=== PATIENT | male | born 1965 | race Caucasian/White ===

== ENCOUNTER → 2016-09-13 | Outpatient (CLI) | payer OTHER ==
[2016-01-27 21:19] VITALS: BP 156/93
[~2016-09-13] MED LIST: HYDR-971 PO
== END | disposition home or self-care (01) ==
LOC: LAB 16:06
PROVIDERS: ATTEND Urology
DX: Z12.5 Encounter for screening for malignant neoplasm of prostate (principal); R31.21 Asymptomatic microscopic hematuria
CPT/HCPCS: 36415; G0103

== ENCOUNTER → 2016-09-18 | Outpatient (CLI) | payer OTHER ==
[2016-01-27 21:19] VITALS: BP 156/93
[~2016-09-18] MED LIST changes: +CONTRAST GIVEN MC PRN; +IOHEXOL 300 MG/ML 100ML VIAL. IV ONE
--- NOTE | 2016-09-18 09:54 | KCIC ---
CT abdomen and pelvis with and without contrast dated 09/18/2016. No comparison available. Clinical indication: Asymptomatic microscopic hematuria. TECHNIQUE: Contiguous axial imaging of the abdomen and pelvis performed with and without the administration of 95 cc Omnipaque 300. Study was performed as dedicated CT urogram with 10 minute delayed imaging. One or more of the following individualized dose reduction techniques were utilized for this examination: 1. Automated exposure control 2. Adjustment of the mA and/or kV according to patient size 3. Use of iterative reconstruction technique. FINDINGS: Precontrast imaging shows no evidence of calcific renal or ureteral stone. No hydronephrosis. No calcific bladder stone. Postcontrast imaging shows symmetric renal parenchymal enhancement. No evidence of mass. Tiny hypodensity at the midpole right kidney likely represents a small cyst. There is symmetric filling of the bilateral renal collecting systems. No apparent ureteral mucosal lesion or stricture. There is suspected mild wall thickening of the urinary bladder on the precontrast imaging. No mucosal lesion identified postcontrast. No apparent mass. Prostate gland is mildly enlarged. Liver, spleen, pancreas, adrenal glands and gallbladder are unremarkable. Unopacified GI tract normal in caliber and contour. No focal bowel wall thickening. No inflammatory stranding in the mesentery. The appendix is normal in caliber. No ascites or lymphadenopathy. Abdominal aorta normal in caliber. Images of the pelvis show no free pelvic fluid or pelvic adenopathy. Suspect small right inguinal hernia containing only fat. Bone windows show no acute findings. Multilevel spondylosis. Limited images of lung bases are clear. IMPRESSION: 1. No evidence of renal stone, renal mass or hydronephrosis. 2. No apparent ureteral or bladder mucosal lesion. There is mild wall thickening of the urinary bladder, nonspecific. 3. Prostatomegaly. Electronically signed by: Abdi Sutton MD (09/18/2016 9:51 AM)
== END | disposition home or self-care (01) ==
LOC: KCIC CT 08:03
PROVIDERS: ATTEND Urology
DX: R31.29 Other microscopic hematuria (principal)
CPT/HCPCS: 74178; Q9967

== ENCOUNTER 2018-07-29 20:03 | Emergency (ER) | payer OTHER ==
[~2018-07-29] VITALS: Ht 180.3 cm; Wt 90.7 kg
[~2018-07-29 20:03] MED LIST changes: -CONTRAST GIVEN MC PRN; +HYDR-3164 PO; -HYDR-971 PO; -IOHEXOL 300 MG/ML 100ML VIAL. IV ONE
[2018-07-29 20:05] VITALS: BP 155/98
[2018-07-29 21:05] LABS: INFLUENZA A PATIENT POSITIVE (NEGATIVE); INFLUENZA B PATIENT NEGATIVE (NEGATIVE)
--- NOTE | 2018-07-29 21:20 | PHYS DOC ---
Past Medical History Past Medical History: No Pertinent History (BERNARD BRENNAN APRN) Past Surgical History: No Surgical History (BERNARD BRENNAN APRN) Alcohol Use: Occasionally Drug Use: Marijuana (BERNARD BRENNAN APRN) Adult General Chief Complaint Chief Complaint: FLU SYMPTOM HPI HPI 52 y/o male presents to ER via POV for c/o flu like illness x3 days. He reports he has had generalized fatigue, body aches, non prod. cough, and felt feverish. He reports he has been using OTC Mucinex and Theraflu with minimal relief in sxs. He reports he has had less of an appetite denying any N/V/D. He denies CP/palpitations, SOA, abd pain, urinary sxs, or ROB/dizziness. He denies any tylenol/ibuprofen today. He denies recent travel. (BERNARD BRENNAN APRN) Review of Systems Review of Systems Constitutional: Reports felt feverish- hasn't checked temp. Reports generalized fatigue/body aches Eyes: Denies change in visual acuity, redness, or eye pain [] HENT: Denies nasal congestion or sore throat [] Respiratory: Denies shortness of breath. Reports nonprod. cough Cardiovascular: Denies CP GI: Denies abdominal pain, nausea, vomiting, bloody stools or diarrhea [] : Denies dysuria or hematuria [] Musculoskeletal: Denies joint/neck stiffness Integument: Denies rash or skin lesions [] Neurologic: Denies headache, focal weakness or sensory changes. Denies dizziness Endocrine: Denies polyuria or polydipsia [] All other systems were reviewed and found to be within normal limits, except as documented in this note. (BERNARD BRENNAN APRN) Current Medications Current Medications Current Medications Medications (Trade) Dose Ordered Sig/Mode Start Time Stop Time Status Last Admin Dose Admin Acetaminophen (Tylenol) 1,000 mg 1X ONCE 07/29/18 21:30 07/29/18 21:30 DC 07/29/18 21:22 1,000 MG Ibuprofen (Motrin) 800 mg 1X ONCE 07/29/18 21:30 07/29/18 21:30 DC 07/29/18 21:22 800 MG (TING NARVAEZ DO) Allergies Allergies Allergies Coded Allergies Type Severity Reaction Last Updated Verified No Known Drug Allergies 01/27/16 No (TING NARVAEZ DO) Physical Exam Physical Exam Constitutional: Well developed, well nourished, no acute distress, non-toxic appearance. Fatigued appearance HENT: Normocephalic, atraumatic, bilateral ears normal, mucous membranes pink/dry, no oral exudates, nose normal. [] Eyes: Pupils equal, conjunctiva normal, no discharge. [] Neck: Normal range of motion, no tenderness, supple, no stridor. [] Cardiovascular: Heart rate regular rhythm, no murmur [] Lungs & Thorax: Bilateral breath sounds clear to auscultation- resp. equal/nonlabored Abdomen: Bowel sounds normal, soft, no tenderness Skin: Warm, dry, no erythema, no rash. [] Back: No tenderness, no CVA tenderness. [] Extremities: No tenderness, no cyanosis, no clubbing, ROM intact, no edema. [] Neurologic: Alert and oriented X 3, normal motor function, normal sensory function, no focal deficits noted. [] Psychologic: Affect normal, judgement normal, mood normal. [] (BERNARD BRENNAN APRN) Current Patient Data Vital Signs Vital Signs Date Time Temp Pulse Resp B/P (MAP) Pulse Ox O2 Delivery O2 Flow Rate FiO2 07/29/18 20:05 100.5 99 20 155/98 (117) 97 Room Air 100.5 (TING NARVAEZ DO) Lab Values Laboratory Tests Test 07/29/18 20:25 07/29/18 21:05 Influenza Type A Antigen Positive (NEGATIVE) Influenza Type B Antigen Negative (NEGATIVE) Group A Streptococcus Rapid Negative (NEGATIVE) Microbiology 07/29/18 Throat Culture - Final, Complete 07/29/18 - Final, Complete (TING NARVAEZ DO) EKG EKG [] (BERNARD BRENNAN APRN) Radiology/Procedures Radiology/Procedures [] (BERNARD BRENNAN APRN) Course & Med Decision Making Course & Med Decision Making Pertinent Labs reviewed. (See chart for details) 2100: Pt was evaluated in the ER for flulike symptoms which he has had for the past 3-4 days. Patient was positive for influenza a. Strep test was obtained which was negative. Discussed symptomatic treatment with patient as his symptoms have been outside the 48-hour window on flu treatment. Patient was given dose of ibuprofen and Tylenol while in the ER as he had a temperature of 100.5 and had not taken any of those medications today. Advised patient to increase fluid intake. Smoking cessation was discussed. Education provided on signs and symptoms to return to ER. Discharge instructions were discussed. Patient to follow-up with primary care physician if symptoms persist or with any concerns. (BERNARD BRENNAN APRN) Dragon Disclaimer Dragon Disclaimer This electronic medical record was generated, in whole or in part, using a voice recognition dictation system. (BERNARD BRENNAN APRN) Departure Departure Impression: Primary Impression: Influenza A Disposition: HOME, SELF-CARE Condition: STABLE Referrals: DAVION MELENDEZ MD (PCP) Patient Instructions: Fever, Influenza, Adult, Smoking Cessation Additional Instructions: Drink plenty of fluids. Tylenol and/or ibuprofen as needed for pain/fever as directed on container. Avoid smoking. Follow-up with your primary care physician if symptoms persist or with concerns. Attending Signature Attending Signature I have reviewed the PA/CORSET MAKER's note and plan of care. I was available for consu ltation as needed during the patient's visit in the emergency department. I agree with the clinical impression, plan, and disposition. (TING NARVAEZ DO) BERNARD BRENNAN APRN Jul 29, 2018 21:20 TING NARVAEZ DO Aug 19, 2018 05:13
[2018-07-29] MEDS ORDERED: IBUPROFEN 400 MG TABLET. PO ONE (21:30)
[2018-07-29] MEDS ORDERED: ACETAMINOPHEN 500 MG TABLET PO ONE (21:30)
== END 2018-07-29 21:24 | disposition home or self-care (01) ==
LOC: ER 20:03
DX: J10.1 Influenza due to other identified influenza virus with other respiratory manifestations (principal)
CPT/HCPCS: 87070; 87804; 87880; 99283

== ENCOUNTER 2020-08-23 15:00 | Emergency (ER) | payer OTHER ==
[~2020-08-23] VITALS: Ht 180.3 cm; Wt 84.9 kg
[2020-08-23 15:36] VITALS: BP 169/91
--- NOTE | 2020-08-23 15:50 | ED.ADGEN ---
Past Medical History Past Medical History: No Pertinent History Past Surgical History: No Surgical History Smoking Status: Current Every Day Smoker Alcohol Use: Occasionally Drug Use: Marijuana General Adult EDM: Chief Complaint: WRIST PAIN HPI: HPI: Patient is a 54 year old AA male who presents emergency department with complaints of right wrist pain after an injury that occurred last night at 2100. Patient states he was walking his dog and had the leash wrapped tightly around his wrist when the dog suddenly jolted and pulled on his arm causing cough. Patient reports that his right wrist has been swollen and he has had pain with movement since the injury. He currently rates pain a 4 out of 10 on pain scale, pain sometimes radiates up to his elbow. He denies any numbness, tingling, or decreased sensation of the affected extremity. Patient is dominantly right- handed. Review of Systems: Review of Systems: Complete ROS is negative unless otherwise noted in HPI. Allergies: Allergies: Allergies Coded Allergies Type Severity Reaction Last Updated Verified No Known Drug Allergies 01/27/16 No Physical Exam: PE: See Above Constitutional: Well developed, well nourished, no acute distress, non-toxic appearance. [] HENT: Normocephalic, atraumatic, bilateral external ears normal, nose normal. [] Eyes: PERRLA, EOMI, conjunctiva normal, no discharge. [] Neck: Normal range of motion, no stridor. [] Cardiovascular:Heart rate regular rhythm Lungs & Thorax: Respirations even and unlabored, no retractions, no respiratory distress Skin: Warm, dry, no erythema, no rash. [] Extremities: Right wrist: Diffuse tenderness to palpation without crepitus or obvious deformity, 1+ edema, sensation intact, 2+ radial pulse no cyanosis, ROM limited due to pain Neurologic: Alert and oriented X 3, no focal deficits noted. [] Psychologic: Affect normal, judgement normal, mood normal. [] Current Patient Data: Vital Signs: Vital Signs Date Time Temp Pulse Resp B/P (MAP) Pulse Ox O2 Delivery O2 Flow Rate FiO2 08/23/20 15:36 98.4 86 18 169/91 (117) 97 Room Air 98.4 EKG: EKG: [] Heart Score: C/O Chest Pain: No Risk Scores: Score 0 - 3: 2.5% MACE over next 6 weeks - Discharge Home Score 4 - 6: 20.3% MACE over next 6 weeks - Admit for Clinical Observation Score 7 - 10: 72.7% MACE over next 6 weeks - Early Invasive Strategies Radiology/Procedures: Radiology/Procedures: PROCEDURE: WRIST 3V RIGHT XR RT WRIST 3VIEWS History: Right wrist pain Comparison: None. Technique: 3 views the right wrist. Findings: There is no evidence for fracture or dislocation. Slight ulnar positive alignment. No destructive osseous lesions are seen. Joint spaces are preserved. Soft tissues are normal. Impression: 1. No acute osseous abnormality of the right wrist. [] Course & Med Decision Making: Course & Med Decision Making Pertinent Labs and Imaging studies reviewed. (See chart for details) [] Dragon Disclaimer: Dragon Disclaimer: This electronic medical record was generated, in whole or in part, using a voice recognition dictation system. Departure Departure Impression: Primary Impression: Acute pain of right wrist Disposition: HOME / SELF CARE / HOMELESS Condition: STABLE Referrals: DAVION MELENDEZ MD (PCP) HARVEY TELLO MD Patient Instructions: Wrist Pain, [id number] Additional Instructions: Fill prescription(s) and use as directed. Recommend application of ice, elevation, and rest of affected extremity. Wear the splint that was placed until follow up appointment with Dr. Tello. You may also take Tylenol as needed for pain. Return to the ER if your symptoms worsen. Scripts Naproxen (NAPROXEN) 500 Mg Tablet 1 TAB PO BID PRN for PAIN for 10 Days, #20 TAB 0 Refills Prov: NAIN BUTCHER APRN 08/23/20 Splinting Splinting : Location: R wrist Pre-Made Type: velcro (Wrist splint) Pre-Proc Neuro Vasc Exam: normal Post-Proc Neuro Vasc Exam: normal, unchanged from pre-exam [facility] [place] splint applied by myself, cap refill remains less than 2 seconds, no complications Attending Signature Attending Signature I have participated in the care of this patient and I have reviewed and agree with all pertinent clinical information above including history, exam, and recommendations. NAIN BUTCHER APRN Aug 23, 2020 15:50 OSMEL BARROW MD Aug 23, 2020 18:28
--- NOTE | 2020-08-23 16:03 | RAD ---
XR RT WRIST 3VIEWS History: Right wrist pain Comparison: None. Technique: 3 views the right wrist. Findings: There is no evidence for fracture or dislocation. Slight ulnar positive alignment. No destructive osseous lesions are seen. Joint spaces are preserved. Soft tissues are normal. Impression: 1. No acute osseous abnormality of the right wrist. Electronically signed by: Ian Martinez MD (08/23/2020 4:01 PM) [facility]
[2020-08-23] MEDS ORDERED: NAPR-514 PO (16:33)
== END 2020-08-23 16:45 | disposition home or self-care (01) ==
LOC: ER 15:00
DX: M25.531 Pain in right wrist (principal); R05 Cough; R60.0 Localized edema; F17.200 Nicotine dependence, unspecified, uncomplicated; F12.90 Cannabis use, unspecified, uncomplicated
CPT/HCPCS: 29125; 73110; 99283

== ENCOUNTER 2021-08-13 08:53 | Inpatient (IN) | payer OTHER ==
[~2021-08-13] VITALS: Ht 180.3 cm; Wt 94.7 kg
[~2021-08-13 08:53] MED LIST changes: +NAPR-514 PO
[2021-08-13] MEDS ORDERED: IBUPROFEN 200 MG TABLET. PO ONE (09:15)
[2021-08-13] MEDS ORDERED: ACETAMINOPHEN 325 MG TABLET. PO ONE (09:15)
--- NOTE | 2021-08-13 09:33 | PHYS DOC ---
Past Medical History Past Medical History: No Pertinent History Past Surgical History: No Surgical History Smoking Status: Current Every Day Smoker Alcohol Use: Heavy Additional Information: 21 DRINKS/WK Drug Use: Marijuana General Adult EDM: Chief Complaint: UPPER EXTREMITY PAIN HPI: HPI: Patient is a 55-year-old male who presents to the emergency department complaining of right wrist pain for the past 3 days. 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 Noticed some swelling. States he took 2 tabs of 325 mg Tylenol last night without noticeable relief in pain. Denies fever or chills. Denies numbness or tingling to his right hand or right upper extremity. Denies history of gouty arthritis. States he takes no prescription medications at home. Reports his last tetanus immunization was less than 5 years ago. Patient describes his pain as a shooting pain rates between a 3 to a 10. Current pain is a 3 out of 10 unless palpated. Patient denies trying nonpharmacological pain relief methods at home prior to arrival to the emergency department. Patient denies other physical complaints or physical concerns. Review of Systems: Review of Systems: 14 body systems of review of systems have been reviewed. See HPI for pertinent positives and negative responses, otherwise all other systems are negative, nonpertinent or noncontributory. Constitutional: Negative except as outlined in HPI above. Skin: Negative except as outlined in HPI above. Eyes: Negative except as outlined in HPI above. HENT: Negative except as outlined in HPI above. Respiratory: Negative except as outlined in HPI above. Cardiovascular: Negative except as outlined in HPI above. GI: Negative except as outlined in HPI above. : Negative except as outlined in HPI above. Musculoskeletal: Negative except as outlined in HPI above. Integument: Negative except as outlined in HPI above. Neurologic: Negative except as outlined in HPI above. Endocrine: Negative except as outlined in HPI above. Lymphatic: Negative except as outlined in HPI above. Psychiatric: Negative except as outlined in HPI above. Heart Score: C/O Chest Pain: No Risk Factors: Risk Factors: DM, Current or recent (<one month) smoker, HTN, HLP, family history of CAD, obesity. Risk Scores: Score 0 - 3: 2.5% MACE over next 6 weeks - Discharge Home Score 4 - 6: 20.3% MACE over next 6 weeks - Admit for Clinical Observation Score 7 - 10: 72.7% MACE over next 6 weeks - Early Invasive Strategies Current Medications: Current Medications Medications (Trade) Dose Ordered Sig/Mode Start Time Stop Time Status Last Admin Dose Admin Acetaminophen (Tylenol) 650 mg 1X ONCE 08/13/21 09:15 08/13/21 09:16 UNV Ibuprofen (Motrin) 600 mg 1X ONCE 08/13/21 09:15 08/13/21 09:16 UNV Allergies: Allergies: Allergies Coded Allergies Type Severity Reaction Last Updated Verified No Known Drug Allergies 01/27/16 No Physical Exam: PE: Constitutional: Well developed, well nourished, no acute distress, non-toxic appearance. 55-year-old male in no apparent distress. HENT: Normocephalic, atraumatic. Eyes: Conjunctiva normal, no discharge. Neck: Normal range of motion, no stridor. Cardiovascular: No cyanosis appreciated, distal cap refill less than 2 seconds. Lungs & Thorax: Patient is in no respiratory distress, no audible adventitious lung sounds appreciated. Abdomen: Nontender, no abnormalities noted. Skin: Warm, dry, no erythema, no rash. Back: No tenderness, no deformities. Extremities: No tenderness, no cyanosis, no clubbing, ROM intact, no edema. Except for right wrist, there is soft tissue swelling to the dorsum aspect of distal wrist and proximal hand over metacarpals 3 and 4, no lymphangitis appr eciated, patient unable to perform Phalen's test related to pain with flexion of wrist Neurologic: Alert and oriented X 3, normal motor function, normal sensory function, no focal deficits noted. Psychologic: Affect normal, judgement normal, mood normal. Current Patient Data: Vital Signs: Vital Signs Date Time Temp Pulse Resp B/P (MAP) Pulse Ox O2 Delivery O2 Flow Rate FiO2 08/13/21 09:01 98.2 102 16 140/72 (94) 96 Room Air 98.2 EKG: EKG: [] Radiology/Procedures: Radiology/Procedures: REASON: wrist pain dorsum wrist and hand PROCEDURE: WRIST 3V RIGHT Exam performed: X-ray right hand and wrist. HISTORY: Pain the wrist and hand. DATE OF SERVICE: 08/13/2021. COMPARISON: None available FINDINGS: AP lateral and oblique views of the right and and wrist is obtained. Normal alignment of the hand and wrist is maintained. There is no acute fracture or dislocation. No bony erosions or periosteal reaction seen. There is mild soft tissue swelling. No foreign body. IMPRESSION: No acute bony abnormality seen in the right wrist and hand. Mild soft tissue swelling is noted. Electronically signed by: Keila Pruitt MD (08/13/2021 9:31 AM) [facility] STATUS: REG ER ORD. PHYSICIAN: TING TRUONG APRN REASON: US dorsum RT wrist; swelling- cyst vs infectious process PROCEDURE: EXT NON VASC RIGHT EXAMINATION: Right posterior wrist ultrasound INDICATION: Patient presents with right wrist swelling cysts versus infectious process COMPARISON: None FINDINGS: Ultrasound in the posterior wrist corresponding to the lump reveals predominantly anechoic fluid with some heterogenous debris surrounding the flexor tendon sheath measuring 4.0 x 3.0 x 1.2 cm. There is not a significant amount of associated vascularity. IMPRESSION: Findings may represent a ganglion cyst or complex tenosynovitis. Superimposed infection is not entirely excluded but felt to be less likely. Additional evaluation with nonemergent MRI or fluid sampling may be considered. Electronically signed by: Lane Curtis DO (08/13/2021 11:44 AM) [id number] Course & Med Decision Making: Course & Med Decision Making Pertinent Labs and Imaging studies reviewed. (See chart for details) 55-year-old male, vital signs reviewed, presents to the emergency department concerning right wrist and hand pain for the past 3 days. Physical examination concerning for ganglion cyst versus abscess versus other infectious process of the wrist and hand the right. Will order ibuprofen and acetaminophen p.o., right wrist and hand x-rays, CBC, CMP, sed rate, CRP level, uric acid level. X-rays unremarkable other than showing soft tissue swelling, will order sonogram of right wrist/hand to further evaluate concerning swelling area. Sonogram findings concerning for ganglion cyst versus a complex tenosynovitis, called and discussed patient case and ED work-up with [facility] principal solution specialist Dr. Al who agreed patient case warrants admission to the hospital, recommend ed patient be started on 25 mg indomethacin 3 times daily, give a Toradol injection IV, admit to inpatient medicine, will evaluate for further intervention. Called and discussed patient case and ED work-up with patient's primary care Dr. Blackmon who agrees patient's case warrants admission to the hospital, Dr. Blackmon did request a.m. labs of CBC, CMP, sed rate. Will order a.m. labs on bridge orders. Dragon Disclaimer: Dragon Disclaimer: This electronic medical record was generated, in whole or in part, using a voice recognition dictation system. Departure Departure Impression: Primary Impression: Tenosynovitis of right wrist Additional Impressions: Right wrist pain Right hand pain Disposition: ADMITTED INPATIENT Admitting Physician: Davion Blackmon (Admit to MedSurg unit, consult orthopedics) Condition: GUARDED Referrals: DAVION BLACKMON MD (PCP) TING TRUONG APRN Aug 13, 2021 09:33
[2021-08-13 09:40] LABS: BASO # 0.1 x10^3/uL (0.0-0.2); BASO % 1 % (0-3); EOS # 0.3 x10^3/uL (0.0-0.7); EOS % 5 % (0-3); HEMATOCRIT 47.7 % (39.0-53.0); HEMOGLOBIN 15.7 g/dL (13.0-17.5); LYMPH % 31 % (24-48); MEAN CORPUSCULAR HEMOGLOBIN 30 pg (25-35); MEAN CORPUSCULAR HGB CONC 33 g/dL (31-37); MEAN CORPUSCULAR VOLUME 90 fL (79-100); MONO # 0.5 x10^3/uL (0.0-1.1); MONO % 8 % (0-9); NEUT # 3.4 x10^3/uL (1.8-7.7); NEUT % 55 % (31-73); PLATELET COUNT 215 x10^3/uL (140-400); RED BLOOD COUNT 5.32 x10^6/uL (4.30-5.70); RED CELL DISTRIBUTION WIDTH 13.5 % (11.5-14.5); WHITE BLOOD COUNT 6.3 x10^3/uL (4.0-11.0)
[2021-08-13 09:54] LABS: CALCIUM 9.4 mg/dL (8.5-10.1); CREATININE 1.1 mg/dL (0.7-1.3); GFR 69.8; POTASSIUM 3.8 mmol/L (3.5-5.1)
[2021-08-13 09:59] LABS: ALBUMIN 3.8 g/dL (3.4-5.0); ALBUMIN/GLOBULIN RATIO 0.9 (1.0-1.7); C-REACTIVE PROTEIN 15.3 mg/L (0-3.3); TOTAL BILIRUBIN 0.5 mg/dL (0.2-1.0); TOTAL PROTEIN 7.9 g/dL (6.4-8.2); URIC ACID 8.2 mg/dL (3.5-7.2)
--- NOTE | 2021-08-13 11:46 | RAD ---
EXAMINATION: Right posterior wrist ultrasound INDICATION: Patient presents with right wrist swelling cysts versus infectious process COMPARISON: None FINDINGS: Ultrasound in the posterior wrist corresponding to the lump reveals predominantly anechoic fluid with some heterogenous debris surrounding the flexor tendon sheath measuring 4.0 x 3.0 x 1.2 cm . There is not a significant amount of associated vascularity. IMPRESSION: Findings may represent a ganglion cyst or complex tenosynovitis. Superimposed infection i s not entirely excluded but felt to be less likely. Additional evaluation with nonemergent MRI or flu id sampling may be considered. Electronically signed by: Lane Curtis DO (08/13/2021 11:44 AM) [id number]
[2021-08-13] MEDS ORDERED: KETOROLAC 15 MG/ML VIAL. IVP ONE (13:30)
[2021-08-13 15:30] VITALS: BP 146/94
[2021-08-13] MEDS: INDOMETHACIN 25 MG CAPSULE. PO SCH (17:37)
[2021-08-13 19:00] VITALS: BP 166/94
[2021-08-13 20:01] VITALS: BP 166/94
[2021-08-13 20:02] VITALS: BP 166/94
[2021-08-13 23:25] VITALS: BP 148/90
[2021-08-14 03:36] VITALS: BP 151/94
[2021-08-14] MEDS ORDERED: HYDROcodone/APAP 7.5/325MG 1 TAB TABLET PO PRN (04:30)
[2021-08-14] MEDS ORDERED: ACETAMINOPHEN 325 MG TABLET. PO PRN (04:30)
[2021-08-14] MEDS ORDERED: KETOROLAC 15 MG/ML VIAL. IVP PRN (04:30)
[2021-08-14 07:00] VITALS: BP 137/75
[2021-08-14] MEDS: INDOMETHACIN 25 MG CAPSULE. PO SCH (08:36)
--- NOTE | 2021-08-14 08:44 | PDOC ---
Provider Note Date of Service: DATE: 08/14/21 TIME: 08:44 Provider Note Combined H&P and discharge dictated. [id number] Justifications for Admission Other Justification DAVION MELENDEZ MD Aug 14, 2021 08:44
[2021-08-14] MEDS ORDERED: NAPR220C4 PO (08:49)
--- NOTE | 2021-08-14 08:51 | DISCH ---
DISCHARGE INSTRUCTIONS Condition on Discharge Condition on Discharge: Stable Activity After Discharge Activity Instructions for Disc: Activity as tolerated Diet after Discharge Diet after Discharge: Regular Contacting the DRMaite after DC Call your doctor for: Concerns you may have Follow-Up Follow up with: Dr.Pratip Blackmon in 5 -7 days Follow Up With: DAVION Carr MD Aug 14, 2021 08:51
--- NOTE | 2021-08-14 10:16 | NUR ---
Patient was seen by this morning and a discharge order was entered for after he was seen by . Patient stated he was not going to wait on any other doctors and demanded IV be removed and stated he was going home now. IV removed, patient escorted out along with and child by this nurse. Educated on follow up instructions with Dr. Cochran and Dr. Blackmon.
--- NOTE | 2021-08-14 10:23 | PDOC2 ---
YULISSA KRAMER 08/14/21 1023: CONSULT Date of Consult Date of Consult DATE: 08/14/21 TIME: 09:57 Reason for Consult Reason for Consult: Right wrist swelling Identification/Chief Complaint Chief Complaint Right dorsal hand swelling History of Present Illness Reason for Visit: Jameel Schneider is a very pleasant 55-year-old -Citizen Of [place] male patient who was admitted to [facility] on 08/13/2021 secondary to acute complaints of right wrist swelling and concerns for possible septic joint. Upon admission to the hospitalist service orthopedics was consulted for evaluation and recommendations. Patient was seen and examined at bedside this morning. He is found to be awake and alert sitting upright in bed watching TV. Family at bedside. Patient complains of pain and discomfort to the dorsal aspect of the right hand. Patient states his pain and swelling began approximately 4 days ago. Denies any inciting injury and/or trauma to the right upper extremity. Pain is reported to be over the dorsal aspect of the right hand. He does report some radiation proximally up into the right forearm. Currently rating his pain 4/10. Made worse with range of motion of the right wrist and hand. Improvement with nonsteroidal anti-inflammatories prescribed on admission. Patient states he did take aspirin at home prior to arrival with no improvement. Patient reports being right-hand dominant. Patient installs wood floors for living. He does report previous history of a right wrist fracture which was treated nonoperatively. Does not recall the date of this injury. Patient lives locally. Denies history of gout or arthritis. Denies IV drug use. Does report smoking marijuana frequently. Occasional alcohol consumption. No reported subjective fever or chills prior to admission. No additional complaints are reported at this time. Past Medical History Past Medical History Denies Past Surgical History Past Surgical History Denies Family History Family History Noncontributory Social History 1 pack per day ALCOHOL: heavy Drugs: Marijuana Lives: with Family Current Problem List Problem List Problems Medical Problems: (1) Right hand pain Status: Acute (2) Dorsal ganglion cyst right hand Status: Acute Current Medications Current Medications Current Medications Ibuprofen (Motrin) 600 mg 1X ONCE PO Last administered on 08/13/21at 10:01; Start 08/13/21 at 09:15; Stop 08/13/21 at 09:56; Status DC Acetaminophen (Tylenol) 650 mg 1X ONCE PO Last administered on 08/13/21at 10:01; Start 08/13/21 at 09:15; Stop 08/13/21 at 09:56; Status DC Indomethacin (Indocin) 25 mg TIDWMEALS PO Last administered on 08/14/21at 08:36; Start 08/13/21 at 17:00 Ketorolac Tromethamine (Toradol 15mg Vial) 15 mg 1X ONCE IVP Last administered on 08/13/21at 13:49; Start 08/13/21 at 13:30; Stop 08/13/21 at 13:40; Status DC Ketorolac Tromethamine (Toradol 15mg Vial) 15 mg PRN Q12HRS PRN IVP INFLAMMATION; Start 08/14/21 at 04:30; Stop 08/19/21 at 04:29; Status UNV Acetaminophen/ Hydrocodone Bitart (Lortab 7.5/325) 1 tab PRN Q6HRS PRN PO PAIN MODERATE/SEVERE; Start 08/14/21 at 04:30 Acetaminophen (Tylenol) 650 mg PRN Q6HRS PRN PO MILD PAIN / TEMP > 100.3'F Last administered on 08/14/21at 04:32; Start 08/14/21 at 04:30 Active Scripts Active Aleve (Naproxen Sodium) 220 Mg Capsule 440 Mg PO BID 10 Days Allergies Allergies: Coded Allergies: No Known Drug Allergies (Unverified , 01/27/16) ROS Review of System Complete 10 point review of systems was performed and found to be negative with exception of those listed in HPI above. Physical Exam Physical Exam Focused orthopedic examination right upper extremity: Skin is warm dry and intact. No visible lacerations or abrasions are noted. No erythema. No induration. No visible streaking. No wounds. Swelling noted over the dorsal aspect of the right hand. Soft fluctuant mobile mass noted dorsum right hand. Positive transillumination. Radial pulse 2+ to palpation. Cap refill brisk. Right hand is warm and well-perfused. No fusiform swelling noted to the digits of the right hand. Digits of the right hand are not held in slight flexion. No tenderness to palpation along the flexor tendon sheaths. No pain with passive extension of all digits. No pain with short arc range of motion to include flexion, extension, ulnar deviation, radial deviation of the right wrist. Compartments are soft and compressible. No pain with passive stretch. General: Alert, Oriented X3, Cooperative, No acute distress HEENT: PERRLA, EOMI Lungs: Normal air movement Heart: Regular rate Abdomen: Soft, No tenderness Extremities: No cyanosis, No edema, Normal pulses Skin: No rashes, No breakdown Neuro: Normal speech, Sensation intact Psych/Mental Status: Mental status NL Vitals VITALS Vital Signs Date Time Temp Pulse Resp B/P (MAP) Pulse Ox O2 Delivery O2 Flow Rate FiO2 08/14/21 07:00 98.2 72 18 137/75 (95) 97 Room Air 98.2 Labs Labs Laboratory Tests Test 08/13/21 09:30 White Blood Count 6.3 x10^3/uL (4.0-11.0) Red Blood Count 5.32 x10^6/uL (4.30-5.70) Hemoglobin 15.7 g/dL (13.0-17.5) Hematocrit 47.7 % (39.0-53.0) Mean Corpuscular Volume 90 fL (79-100) Mean Corpuscular Hemoglobin 30 pg (25-35) Mean Corpuscular Hemoglobin Concent 33 g/dL (31-37) Red Cell Distribution Width 13.5 % (11.5-14.5) Platelet Count 215 x10^3/uL (140-400) Neutrophils (%) (Auto) 55 % (31-73) Lymphocytes (%) (Auto) 31 % (24-48) Monocytes (%) (Auto) 8 % (0-9) Eosinophils (%) (Auto) 5 % (0-3) Basophils (%) (Auto) 1 % (0-3) Neutrophils # (Auto) 3.4 x10^3/uL (1.8-7.7) Lymphocytes # (Auto) 2.0 x10^3/uL (1.0-4.8) Monocytes # (Auto) 0.5 x10^3/uL (0.0-1.1) Eosinophils # (Auto) 0.3 x10^3/uL (0.0-0.7) Basophils # (Auto) 0.1 x10^3/uL (0.0-0.2) Erythrocyte Sedimentation Rate 5 (0-15) Sodium Level 139 mmol/L (136-145) Potassium Level 3.8 mmol/L (3.5-5.1) Chloride Level 102 mmol/L (98-107) Carbon Dioxide Level 27 mmol/L (21-32) Anion Gap 10 (6-14) Blood Urea Nitrogen 21 mg/dL (8-26) Creatinine 1.1 mg/dL (0.7-1.3) Estimated GFR (Cockcroft-Gault) 69.8 BUN/Creatinine Ratio 19 (6-20) Glucose Level 101 mg/dL (70-99) Uric Acid 8.2 mg/dL (3.5-7.2) Calcium Level 9.4 mg/dL (8.5-10.1) Total Bilirubin 0.5 mg/dL (0.2-1.0) Aspartate Amino Transf (AST/SGOT) 26 U/L (15-37) Alanine Aminotransferase (ALT/SGPT) 14 U/L (16-63) Alkaline Phosphatase 76 U/L (46-116) C-Reactive Protein, Quantitative 15.3 mg/L (0-3.3) Total Protein 7.9 g/dL (6.4-8.2) Albumin 3.8 g/dL (3.4-5.0) Albumin/Globulin Ratio 0.9 (1.0-1.7) Images Images Plain film x-rays of the patient's right hand and right wrist show no acute fractures. Soft tissue swelling noted dorsum right hand. No significant effusion right wrist. No acute abnormalities. Assessment/Plan Assessment/Plan 55-year-old male acute right wrist pain/swelling Dorsal ganglion cyst right hand * PWB RUE; no heavy lifting, pushing or pulling RUE * ICE R wrist/hand prn pain/discomfort * Velcrow wrist splint RUE * Recommend NSAIDs/Tylenol prn pain/discomfort * Uric Acid 8.2 on admission * WBC WNL; ESR 5, CRP 15.3 * VSS; pt afebrile * Radiographic imaging and physical exam findings were discussed with the patient at length at bedside. Patient appears to have a ganglion cyst of the dorsal aspect of the right hand. Clinically patient does not have any positive Knievel signs and no Miguelito criteria are present. I had a very long in-depth discussion with the patient regarding the pathogenesis and prognosis of his right dorsal ganglion cyst. Typically we would recommend observation as our first line of treatment. I did discuss the risk of closed rupture and the high risk of recurrence should this occur. Would recommend a short term of immobilization followed by gentle progressive active range of motion of the right wrist and hand. Should the patient's symptoms persist he can follow-up with our office to discuss aspiration versus surgical resection. No indication for acute orthopedic surgical intervention. Patient is stable for discharge from an orthopedic standpoint. Should the patient desire a follow- up appointment with our office he should call [phone]. Stable for discharge from an orthopedic standpoint. Orthopedics to sign off at this time. Do not hesitate to reach out should any further questions or concerns arise. CHICHI DE Jr. DO 08/14/21 1102: YULISSA KRAMER Aug 14, 2021 10:23 CHICHI DE Jr. DO Aug 14, 2021 11:02
--- NOTE | 2021-08-14 11:55 | SSS ---
DATE OF SERVICE: 08/14/2021 ADMIT DATE: 08/13/2021 This is a combined history and physical and discharge summary. 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 There is no history of trauma. The patient had a complex cystic swelling on the right wrist posteriorly and sonogram showed a ganglion cyst or complex tenosynovitis. X-rays of the wrist and hand were unremarkable. WBC count was 6.3, hemoglobin 15.7, eosinophils 5, polys 55. Sed rate 5. Uric acid 8.2. C-reactive protein 15.3. Sodium 139, potassium 3.8, BUN 21, creatinine 1.1. Because of the sonogram suggestive of a ganglion cyst versus complex tenosynovitis with risk of infection, the ER staff called Dr. Cochran for orthopedic evaluation and management and he recommended admitting the patient to the hospital with anti-inflammatory medications like Toradol and Indocin. The patient was admitted under my service for further management. SYSTEMS REVIEW: At present time, the patient is complaining of right wrist pain and swelling. Denies any other symptoms. Systems review is negative for any other issues. PAST MEDICAL HISTORY: Noncontributory. PAST SURGICAL HISTORY: Noncontributory. FAMILY HISTORY: Noncontributory. MEDICATIONS: Tylenol p.r.n. ALLERGIES: No known any. PHYSICAL EXAMINATION: VITAL SIGNS: Blood pressure 140/72, temperature 98.2, pulse 102 per minute, respirations 16 per minute, blood pressure is 137/75 this morning. Yesterday, it went up to 166/94. GENERAL: The patient is alert, oriented, not in acute distress. EYES: Pupils reacting to light. Conjunctivae pink. Sclerae white. HENT: Unremarkable. NECK: Supple. JVP normal. No thyromegaly. Trachea midline. LUNGS: Clear. CARDIOVASCULAR: S1, S2, regular. ABDOMEN: Soft, nontender. EXTREMITIES: No edema. Right wrist posteriorly has a soft swelling on the dorsum of the hand, nontender. There is some fluctuation, no redness noted. No tenderness at this time. unremarkable. Peripheral pulses unremarkable. Range of motion is normal. FINAL DIAGNOSIS: Ganglion cyst of the right hand with inflammation, improving clinically, no infections. PLAN: Consult orthopedic surgeon, Dr. Cochran. If it is okay with him and if he remains stable, he may be able to go home today with oral anti-inflammatory medication. I have advised him to take Aleve 2 tablets twice daily. Elevated blood pressure, monitor. PLAN: Discharge home today. See me in the office in 5 to 7 days. He also has an appointment to see me tomorrow, which he can keep if needed. For details, please refer the discharge orders. [facility] [place] DR: JENS/mallory TID: [id number]
== END 2021-08-14 10:05 | disposition home or self-care (01) | DRG 558 ==
LOC: ER 08:53 → 4 NORTH 13:00 → ER 14:46
PROVIDERS: ADMIT Internal Medicine; ATTEND Internal Medicine
PROC: 2W38X1Z Immobilization of Right Upper Extremity using Splint (ICD-10-PCS; principal; 2021-08-13)
DX: M65.9 Synovitis and tenosynovitis, unspecified (principal); M67.441 Ganglion, right hand; Z87.891 Personal history of nicotine dependence; F12.90 Cannabis use, unspecified, uncomplicated; Z79.899 Other long term (current) drug therapy
CPT/HCPCS: 36415; 73110; 73130; 76881; 80053; 84550; 85025; 85651; 86140; 96374; J1885; 99285-25; G0378